=== PATIENT | male | born 1995 | race Caucasian/White ===

== ENCOUNTER 2017-12-06 20:00 | Emergency (ER) | payer OTHER ==
--- NOTE | 2017-12-06 20:30 | PDOC ---
Rapid Medical Evaluation Medical Evaluation: 12/06/17 20:28 I have performed a brief in-person evaluation of this patient. The patient presents with a chief complaint of: jumped off ladder, knee "went in ", felt a crack, denies bleeding, pain to knee Pertinent physical exam findings: tenderness to medial knee, non weight bearing I have ordered the following: x-ray The patient will proceed to the ED for further evaluation. Discharge Disposition - Diagnosis Knee injury - Referrals - Patient Instructions - Post Discharge Activity
[2017-12-06 20:35] VITALS: BP 131/63; PULSE 89; TEMP 97.2; BMI 25.8
--- NOTE | 2017-12-06 21:06 | PDOC ---
History of Present Illness - General Chief Complaint: Pain Stated Complaint: LEFT KNEE PAIN Time Seen by Provider: 12/06/17 20:56 History Source: Patient Exam Limitations: No Limitations - History of Present Illness Initial Comments: CHIEF COMPLAINT: 22 y/o afebrile male with PMH asthma c/o left knee pain and instability s/p fall. HPI: The patient states he fell off of the 5th rung of a ladder tonight and when his left leg hit the ground it buckled on him and he now feels like it's unstable. He states the same thing happened to him last year but he never followed up with ortho and states his knee does buckle on him from time to time. Past History - Past Medical History Allergies/Adverse Reactions: Allergies Allergy/AdvReac Type Severity Reaction Status Date / Time No Known Allergies Allergy Verified 12/06/17 20:31 Home Medications: Ambulatory Orders NK [No Known Home Medication] 12/06/17 COPD: No Other medical history: Pt denies - Suicide/Smoking/Psychosocial Hx Smoking History: Never smoked Have you smoked in the past 12 months: No Information on smoking cessation initiated: No Hx Alcohol Use: No Drug/Substance Use Hx: No Substance Use Type: None Review of Systems - Review of Systems Able to Perform ROS?: Yes Constitutional: No: Symptoms Reported HEENTM: No: Symptoms Reported Musculoskeletal: Yes: Joint Pain (left knee), Joint Swelling Integumentary: No: Symptoms Reported Neurological: No: Symptoms reported *Physical Exam - Vital Signs Last Vital Signs Temp Pulse Resp BP Pulse Ox 97.2 F L 89 18 131/63 98 12/06/17 20:32 12/06/17 20:32 12/06/17 20:32 12/06/17 20:32 12/06/17 20:32 - Physical Exam Comments: The patient is a very well appearing male in wheelchair. General Appearance: Yes: Nourished, Appropriately Dressed. No: Apparent Distress Extremity: positive: Swelling (minimal swelling to left knee. ), Other (TTP of left medial joint line and medial knee joint. No crepitus or deformities. No tibial plateau TTP. No TTP of left patella. No erythem or warmth to affected joint. Pt cannot tolerate lachmann's test) Medical Decision Making - Medical Decision Making A/P: 22 y/o male with most likely soft tissue injury of left knee. Will send for xray to confirm no fracture. Will give knee immobilizer and crutches. INstructed him to take motrin for pain and follow RICE instructions at home. He refuses pain medication in the ER. Provided ortho referral and instructed him to call for follow up MRI, especially since he had similar injury last year that never full healed. knee xray IMPRESSION: (wet read) No fracture The patient verbalizes understanding of all instructions, has no further questions and is awaiting discharge. *DC/Admit/Observation/Transfer Diagnosis at time of Disposition: Knee injury Qualifiers: Encounter type: initial encounter Laterality: left Qualified Code(s): S89.92XA - Unspecified injury of left lower leg, initial encounter Soft tissue injury of left knee Qualifiers: Encounter type: initial encounter Qualified Code(s): S89.92XA - Unspecified injury of left lower leg, initial encounter - Discharge Dispostion Disposition: HOME Condition at time of disposition: Good - Referrals Referrals: Jaspreet Grayson MD [Staff Physician] - Call tomorrow - Patient Instructions Printed Discharge Instructions: How To Perform RICE (Rest, Ice, Compress, Elevate), DI for Knee Pain Additional Instructions: Discharge Instructions: -Please use knee immobilizer and crutches UNTIL YOU FOLLOW UP WITH DR. GRAYSON -Follow RICE instructions -Take Motrin if needed for pain/swelling -Call Dr. Grayson and schedule follow up appointment tomorrow to have an MRI -Return to the ER with any worsening or concerning symptoms - Post Discharge Activity
== END 2017-12-06 22:12 | disposition home or self-care (01) ==
LOC: JERFT 20:00
PROC: 2W3RXYZ Immobilization of Left Lower Leg using Other Device (ICD-10-PCS; principal; 2017-12-06)
DX: S89.82XA Other specified injuries of left lower leg, initial encounter (principal); W11.XXXA Fall on and from ladder, initial encounter; Y93.89 Activity, other specified; Y92.89 Other specified places as the place of occurrence of the external cause; Y99.8 Other external cause status
CPT/HCPCS: 29530; 73562-TC-LT-FY; 99282-25

== ENCOUNTER 2024-04-11 23:37 | Inpatient (IN) | payer OTHER ==
[2024-04-12] MEDS ORDERED: ONDANSETRON 4 MG/2 ML VIAL ONE (01:07)
[2024-04-12] MEDS: ONDANSETRON 4 MG/2 ML VIAL IVPB ONE (01:15)
[2024-04-12] MEDS: LACTATED RINGERS SOLUTION 1000 ML INFUS.BAG IV ONE ×3 (01:15→05:56)
[2024-04-12 01:29] LABS: VENOUS BASE EXCESS -20.9 mmol/L (-2-2); VENOUS O2 SATURATION 44.6 % (70-80); VENOUS PCO2 27.7 mmHg (38-52)
[2024-04-12 01:31] LABS: VENOUS PH 7.071 (7.310-7.410)
[2024-04-12 01:31] LABS: HEMATOCRIT 51.1 % (35.4-49); HEMOGLOBIN 16.8 GM/dL (11.7-16.9); MCH 28.7 pg (25.7-33.7); MCHC 32.9 g/dl (32.0-35.9); MEAN CELL VOLUME 87.4 fl (80-96); MEAN PLT VOLUME 9.8 fl (7.5-11.1); PLATELET COUNT 275 10^3/uL (134-434); RBC 5.85 M/mm3 (4.00-5.60); RDW 15.9 % (11.9-15.9); WHITE BLOOD COUNT 9.4 K/mm3 (4.0-10.0)
[2024-04-12 02:15] LABS: POTASSIUM 4.3 mmol/L (3.5-5.1)
[2024-04-12 02:17] LABS: ALBUMIN 4.4 g/dl (3.4-5.0); CALCIUM 8.9 mg/dL (8.5-10.1)
[2024-04-12 02:18] LABS: BLOOD UREA NITROGEN 7.7 mg/dL (7-18)
[2024-04-12 02:21] LABS: CREATININE 1.1 mg/dL (0.55-1.3); PHOSPHOROUS 2.7 mg/dL (2.5-4.9)
[2024-04-12 02:22] LABS: BILIRUBIN,TOTAL 0.8 mg/dL (0.2-1); TOT PROT 8.1 g/dl (6.4-8.2)
[2024-04-12] MEDS ORDERED: KCL 10 MEQ IVPB 20 MEQ/200 ML INFUS.BAG IVPB ONE (02:31)
[2024-04-12] MEDS: SODIUM CHLORIDE 1,000 ML IV STA (03:23)
[2024-04-12] MEDS: INSULIN REGULAR 100 UNITS in SODIUM CHLORIDE 99 ML IVPB SCH ×2 (03:24→10:38)
[2024-04-12] MEDS: KCL 20 MEQ PREMIX BAG 20 MEQ/100 ML INFUS.BAG IVPB SCH (03:24)
[2024-04-12] MEDS: D5-NS + 20 MEQ KCL - 20 MEQ/1,000 ML INFUS.BAG IV SCH ×2 (05:57→10:40)
[2024-04-12 06:21] LABS: HEMOGLOBIN 14.9 GM/dL (11.7-16.9); MCH 28.9 pg (25.7-33.7); MCHC 32.5 g/dl (32.0-35.9); MEAN CELL VOLUME 89.1 fl (80-96); MEAN PLT VOLUME 10.2 fl (7.5-11.1); PLATELET COUNT 231 10^3/uL (134-434); RBC 5.16 M/mm3 (4.00-5.60); RDW 15.4 % (11.9-15.9); WHITE BLOOD COUNT 9.5 K/mm3 (4.0-10.0)
[2024-04-12 06:25] LABS: VENOUS BASE EXCESS -24.7 mmol/L (-2-2); VENOUS O2 SATURATION 67.9 % (70-80); VENOUS PCO2 21.8 mmHg (38-52)
[2024-04-12 06:30] LABS: CALCIUM 8.3 mg/dL (8.5-10.1)
[2024-04-12 06:31] LABS: ALBUMIN 3.6 g/dl (3.4-5.0); BLOOD UREA NITROGEN 6.7 mg/dL (7-18); MAGNESIUM 1.8 mg/dL (1.8-2.4)
[2024-04-12 06:33] LABS: BILIRUBIN,DIRECT 0.1 mg/dL (0.0-0.2); CHOLESTEROL 286 mg/dL (50-200)
[2024-04-12 06:34] LABS: CREATININE 0.8 mg/dL (0.55-1.3); LDL CHOLESTEROL (ONLY SJRH) 207 mg/dL (5-100); PHOSPHOROUS 1.7 mg/dL (2.5-4.9)
[2024-04-12 06:35] LABS: BILIRUBIN,TOTAL 0.7 mg/dL (0.2-1); TOT PROT 6.7 g/dl (6.4-8.2)
[2024-04-12 06:36] LABS: HDL CHOLESTEROL 36 mg/dL (40-60)
[2024-04-12] MEDS ORDERED: INSULIN REGULAR 100 UNITS in SODIUM CHLORIDE 99 ML IVPB SCH (08:35)
[2024-04-12] MEDS ORDERED: TRIMETHOBENZAMIDE HCL 200MG/2ML INJ IM PRN ×2 (08:37→23:03)
[2024-04-12 10:22] LABS: POTASSIUM 3.2 mmol/L (3.5-5.1)
[2024-04-12 10:26] LABS: BLOOD UREA NITROGEN 5.4 mg/dL (7-18)
[2024-04-12 10:27] LABS: CALCIUM 8.7 mg/dL (8.5-10.1)
[2024-04-12 10:30] LABS: CREATININE 0.8 mg/dL (0.55-1.3)
[2024-04-12] MEDS: INSULIN (LEVEMIR) 100 UNITS/ML UNITS SQ ONE (11:03)
[2024-04-12] MEDS: ENOXAPARIN NA (PORCINE) 40 MG/0.4 ML DISP.SYRIN SQ SCH (11:09)
[2024-04-12] MEDS: INSULIN ASPART SLIDING SCALE (NOVOLOG) 1 VIAL SQ SCH (11:26)
[2024-04-12] MEDS: MUPIROCIN 2% TOPICAL OINTMENT FOR DECOLONIZATION NS SCH (12:19)
[2024-04-12] MEDS: DEXTROSE 5%-NORMAL SALINE 1,000 ML IV SCH (12:30)
[2024-04-12] MEDS: POTASSIUM CHLORIDE TABS 20 MEQ TABLET.ER (FP) PO ONE (12:33)
[2024-04-12] MEDS ORDERED: SODIUM CHLORIDE 1,000 ML IV SCH (13:00)
[2024-04-12] MEDS: POTASSIUM PHOSPHATE 30 MM in DEXTROSE 5%-WATER - 250 ML IVPB ONE (14:00)
[2024-04-12] MEDS ORDERED: INSULIN (LEVEMIR) 100 UNITS/ML UNITS SQ ONE (15:32)
[2024-04-12] MEDS ORDERED: INSULIN ASPART SLIDING SCALE (NOVOLOG) 1 VIAL SQ ONE (15:32)
[2024-04-12 16:08] LABS: POTASSIUM 3.7 mmol/L (3.5-5.1)
[2024-04-12 16:09] LABS: CALCIUM 8.2 mg/dL (8.5-10.1)
[2024-04-12 16:10] LABS: BLOOD UREA NITROGEN 4.5 mg/dL (7-18); POTASSIUM 3.7 mmol/L (3.5-5.1)
[2024-04-12 16:12] LABS: BLOOD UREA NITROGEN 4.8 mg/dL (7-18); CALCIUM 8.4 mg/dL (8.5-10.1)
[2024-04-12 16:13] LABS: CREATININE 0.8 mg/dL (0.55-1.3)
[2024-04-12 16:16] LABS: CREATININE 0.8 mg/dL (0.55-1.3)
[2024-04-12] MEDS: CHLORHEXIDINE GLUCONATE 4% CLEANSER FOR DECOLONIZATION TP SCH (21:03)
[2024-04-12] MEDS: LACTATED RINGERS SOLUTION 1,000 ML/1,000 ML INFUS.BAG IV SCH (22:53)
[2024-04-12] MEDS: INSULIN (LEVEMIR) 100 UNITS/ML UNITS SQ SCH (22:57)
[2024-04-13 00:25] VITALS: RESP 18
[2024-04-13] MEDS: INSULIN ASPART SLIDING SCALE (NOVOLOG) 1 VIAL SQ SCH (06:16)
[2024-04-13] MEDS: LACTATED RINGERS SOLUTION 1,000 ML/1,000 ML INFUS.BAG IV SCH (07:14)
[2024-04-13] MEDS: INSULIN (LEVEMIR) 100 UNITS/ML UNITS SQ SCH ×2 (07:15→22:13)
[2024-04-13 09:55] LABS: HEMATOCRIT 41.9 % (35.4-49); HEMOGLOBIN 13.8 GM/dL (11.7-16.9); MCH 28.9 pg (25.7-33.7); MCHC 33.1 g/dl (32.0-35.9); MEAN CELL VOLUME 87.5 fl (80-96); MEAN PLT VOLUME 9.7 fl (7.5-11.1); PLATELET COUNT 198 10^3/uL (134-434); RBC 4.79 M/mm3 (4.00-5.60); RDW 15.2 % (11.9-15.9); WHITE BLOOD COUNT 7.3 K/mm3 (4.0-10.0)
[2024-04-13] MEDS: ENOXAPARIN NA (PORCINE) 40 MG/0.4 ML DISP.SYRIN SQ SCH (09:59)
[2024-04-13] MEDS: LISINOPRIL 5 MG TABLET PO SCH (09:59)
[2024-04-13] MEDS ORDERED: LISINOPRIL 5 MG TABLET PO SCH (10:00)
[2024-04-13] MEDS ORDERED: INSULIN (LEVEMIR) 100 UNITS/ML UNITS SQ SCH ×4 (10:00→22:00)
[2024-04-13] MEDS ORDERED: MUPIROCIN 2% TOPICAL OINTMENT FOR DECOLONIZATION NS SCH (10:00)
[2024-04-13 10:20] LABS: POTASSIUM 3.7 mmol/L (3.5-5.1)
[2024-04-13 10:30] LABS: BLOOD UREA NITROGEN 4.5 mg/dL (7-18); CALCIUM 8.7 mg/dL (8.5-10.1); MAGNESIUM 1.9 mg/dL (1.8-2.4)
[2024-04-13 10:33] LABS: CREATININE 0.8 mg/dL (0.55-1.3); PHOSPHOROUS 1.4 mg/dL (2.5-4.9)
[2024-04-13] MEDS: INSULIN (NOVOLOG) ASPART 100 UNITS/ML 10ML VIAL SQ SCH ×2 (10:56→16:52)
[2024-04-13 11:34] VITALS: BMI 33.8
[2024-04-13 11:40] LABS: ARTERIAL BLD GAS O2 SATURATION 97.3 % (95-98); ARTERIAL BLOOD GAS BASE EXCESS -11.3 mmol/L (-2-2); ARTERIAL BLOOD GAS PO2 101.7 mmHg (80-100); ARTERIAL BLOOD GAS pH 7.309 (7.350-7.450)
[2024-04-13 11:41] LABS: ALLENS TEST POSITIVE
[2024-04-13 15:56] LABS: POTASSIUM 3.6 mmol/L (3.5-5.1)
[2024-04-13 15:58] LABS: CALCIUM 8.5 mg/dL (8.5-10.1)
[2024-04-13 15:59] LABS: ALBUMIN 3.2 g/dl (3.4-5.0); BLOOD UREA NITROGEN 5.8 mg/dL (7-18)
[2024-04-13 16:02] LABS: CREATININE 0.8 mg/dL (0.55-1.3)
[2024-04-13 16:04] LABS: BILIRUBIN,TOTAL 0.9 mg/dL (0.2-1)
[2024-04-13] MEDS: POTASSIUM CHLORIDE TABS 20 MEQ TABLET.ER (FP) PO ONE (16:49)
[2024-04-13] MEDS ORDERED: CHLORHEXIDINE GLUCONATE 4% CLEANSER FOR DECOLONIZATION TP SCH (22:00)
[2024-04-14 04:25] VITALS: PULSE 70
[2024-04-14] MEDS: INSULIN (LEVEMIR) 100 UNITS/ML UNITS SQ SCH (06:40)
[2024-04-14 07:58] LABS: VENOUS BASE EXCESS -6.6 mmol/L (-2-2); VENOUS O2 SATURATION 97.3 % (70-80); VENOUS PCO2 31.4 mmHg (38-52); VENOUS PH 7.361 (7.310-7.410)
[2024-04-14] MEDS ORDERED: INSULIN ASPART SLIDING SCALE (NOVOLOG) 1 VIAL SQ ONE (08:42)
[2024-04-14] MEDS: INSULIN (NOVOLOG) ASPART 100 UNITS/ML 10ML VIAL SQ ONE (08:45)
[2024-04-14 09:01] LABS: HEMATOCRIT 42.2 % (35.4-49); HEMOGLOBIN 14.4 GM/dL (11.7-16.9); MCH 28.8 pg (25.7-33.7); MCHC 34.2 g/dl (32.0-35.9); MEAN CELL VOLUME 84.4 fl (80-96); PLATELET COUNT 203 10^3/uL (134-434); RDW 15.3 % (11.9-15.9); WHITE BLOOD COUNT 6.3 K/mm3 (4.0-10.0)
[2024-04-14 09:28] VITALS: BP 141/78; TEMP 97.5
[2024-04-14 09:29] LABS: POTASSIUM 3.5 mmol/L (3.5-5.1)
[2024-04-14 09:41] LABS: ALBUMIN 3.3 g/dl (3.4-5.0); CALCIUM 8.8 mg/dL (8.5-10.1)
[2024-04-14 09:42] LABS: MAGNESIUM 1.9 mg/dL (1.8-2.4)
[2024-04-14 09:44] LABS: CREATININE 0.6 mg/dL (0.55-1.3); PHOSPHOROUS 1.5 mg/dL (2.5-4.9)
[2024-04-14 09:45] LABS: BILIRUBIN,TOTAL 1.3 mg/dL (0.2-1); BLOOD UREA NITROGEN 4.7 mg/dL (7-18); TOT PROT 6.1 g/dl (6.4-8.2)
[2024-04-14] MEDS: INSULIN (NOVOLOG) ASPART 100 UNITS/ML 10ML VIAL SQ SCH (10:35)
[2024-04-14] MEDS ORDERED: INSULIN (LEVEMIR) 100 UNITS/ML UNITS SQ SCH (22:00)
== END 2024-04-14 16:12 | disposition home or self-care (01) | DRG 420 ==
LOC: JER 23:37 → JERBED 04-12 03:31 → JICU 04-12 04:52 → J6S 04-12 22:20
PROVIDERS: ADMIT Internal Medicine Pulmonary Disease; ATTEND Internal Medicine
DX: E11.10 Type 2 diabetes mellitus with ketoacidosis without coma (principal); I10 Essential (primary) hypertension; J45.909 Unspecified asthma, uncomplicated; K76.0 Fatty (change of) liver, not elsewhere classified; E66.9 Obesity, unspecified; Z68.33 Body mass index [BMI] 33.0-33.9, adult
CPT/HCPCS: 0241U-QW; 36415; 36600; 74177-TC; 80048; 80053; 80061; 80076; 82010; 82803; 82962; 83036; 83605; 83690; 83735; 84100; 84484; 85025; 85027; 86337; 86341; 93005; 93010; 99291; J0131